=== PATIENT | female | born 1945 | race Hispanic/Latino ===

== ENCOUNTER 2017-03-02 11:13 | Day surgery (SDC) | payer MEDICARE, OTHER ==
[2017-03-02 12:12] LABS: INR 1.11 (0.87-1.13)
[2017-03-02 12:13] LABS: Calcium 8.9 mg/dL (8.4-10.2)
--- NOTE | 2017-03-02 12:15 | Short Stay Summary ---
Short Stay Documentation Date of service: 03/02/17 Narrative H&P: Patient has had multiple permacath. She presents now with a malfunctioning permacath. She is not had dialysis for more than a week. - History Principal diagnosis: malfunctioning permacath Past Medical History: ESRD Past Surgical History: Other (patient has had multiple dialysis catheters) Social history: no significant social history, - Allergies and Medications Current Medications: Allergies No Known Allergies Allergy (Unverified 03/02/17 11:16) Home Medications Medication Instructions Recorded Confirmed Last Taken Type Fludrocortisone [Florinef] 0.1 mg PO DAILY 03/02/17 03/02/17 03/01/17 History 0.1mg Insulin Detemir [Levemir] 35 units SC BID 03/02/17 03/02/17 03/01/17 History 35units Paroxetine HCl [Paxil] 30 mg PO DAILY 03/02/17 03/02/17 03/01/17 History 30mg Quetiapine Fumarate [Quetiapine 100 mg PO DAILY 03/02/17 03/02/17 03/01/17 History Fumarate ER] 100mg Rosuvastatin (Nf) [Crestor] 10 mg PO QHS 03/02/17 03/02/17 03/01/17 History 10mg Warfarin Sodium [Jantoven] 5 mg PO DAILY 03/02/17 03/02/17 02/25/17 History 5mg - Physical exam General appearance: no acute distress HEENT: Atraumatic Lungs: Clear to auscultation Heart: Regular rate Gastrointestinal: normal Extremities: no ischemia Neurological: Other (grossly intact) - Brief post op/procedure progress note Date of procedure: 03/02/17 Pre-op diagnosis: malfunctioning permacath Post-op diagnosis: same Procedure: 1. Balloon angioplasty of the SVC with 8x4 balloon 2. Replace existing permacath with Glidepath 23cm 3. Fluoroscopic guidance Anesthesia: local (sedation) Findings: excellent flow from both ports Surgeon: TAM LOTT Estimated blood loss: minimal Pathology: none Condition: stable - Hospital course Hospital course: benign Short Stay Discharge Plan Activity: advance as tolerated Diet: advance as tolerated Wound: other (as instructed) Follow up with: TAM LOTT MD [Staff Physician] - 7 Days
[2017-03-02] MEDS ORDERED: NACL 0.9% 100 ML IV PRN (13:10)
--- NOTE | 2017-03-02 13:10 | Progress Note ---
Subjective Principal diagnosis: malfunctioning permacath Objective - Vital Signs Vital signs: Vital Signs - 12hr 03/02/17 11:38 Temperature 98 F Pulse Rate 86 Respiratory 18 Rate Blood Pressure 94/49 [Right] O2 Sat by Pulse 100 Oximetry - Lab 03/02/17 11:49 Most recent lab results Calcium 8.9 mg/dL (8.4-10.2) 03/02/17 11:49
[2017-03-02] MEDS ORDERED: HEPARIN/NS 5000 UNIT/500ML(CATH LAB) 500 ML IR ONE (13:46)
[2017-03-02] MEDS ORDERED: NACL 0.9% 500 ML 500 ML ONE (13:46)
[2017-03-02] MEDS ORDERED: XYLOCAINE 2% INFILTRATI ONE (13:46)
[2017-03-02] MEDS ORDERED: ANCEF/STERILE WATER 2 GM/20 ML 2 GM/20 ML SYRINGE IV ONE (13:46)
[2017-03-02] MEDS: VERSED ONE ×2 (13:53→13:55)
[2017-03-02] MEDS: SUBLIMAZE ONE ×2 (13:53→13:55)
[2017-03-02] MEDS: HEPARIN 10,000 UNITS/10 ML ONE ×2 (14:19→14:20)
[2017-03-02] MEDS ORDERED: TRIPLE ANTIBIOTIC TP ONE (14:22)
[2017-03-02] MEDS ORDERED: SODIUM BICARBONATE IV ONE ×4 (14:45→14:50)
--- NOTE | 2017-03-02 14:45 | Operative Report ---
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 Malfunctioning permacath Procedure name(s): 1. Balloon angioplasty of the SVC with 8x4 balloon 2. Replace existing permacath with Glidepath 23cm 3. Fluoroscopic guidance Surgeon: Larry Loera MD Anesthesia: [local with moderate sedation] Moderate sedation time: Start: 13:53 End: 14:18 Total: 25 minutes EBL: minimal Operative indication: Patient is a 72-year-old woman who has multiple failed dialysis catheters. She presents now for replacement of her existing permacath. Findings: There appeared to be narrowing of the superior vena cava as if there were fibrin tunnel. This was treated with balloon angioplasty. Procedure: The patient was placed on the table in supine position. She was given moderate sedation under my direction and supervision by the personnel in the laborer beam house. The area over the right neck was prepped with clear prep solution and draped in the usual sterile fashion. 2% lidocaine plain was used for local anesthesia. A small incision was made at the base of the neck in the permacath that was in place was identified and clamped with a hemostat. The permacath was then divided. The tip of the PermCath was removed intact over a superstiff wire. An 8 [place] sheath was placed over the wire into the central circulation. Contrast injection revealed a patent superior vena cava but there appeared to be some narrowing consistent with a fibrin tunnel. An 8 mm x 4 cm balloon was then used to dilate this area without incident. The remaining portion of the permacath was removed from the skin exit site. The skin exit site was closed with 4-0 chromic. And the skin exit site was fashioned just laterally to the existing one. The catheter was tunneled between the neck incision and this incision. The largest dilator was then placed over the Super Stiff wire into the central circulation. The peel-away sheath was then placed over the guidewire into the central circulation. The guidewire and dilator were removed. The catheter was placed into the central circulation and the peel-away sheath was removed. The catheter was positioned appropriately in the right atrium. There was excellent flow from both ports. The catheter was flushed with heparin saline solution. The catheter then was then filled with units of heparin in each lumen. The new exit tunnel was closed with 4-0 Monocryl. The neck incision was closed with 4-0 Monocryl. Sterile dressings were applied. The patient tolerated the procedure well. Final fluoroscopic images showed the catheter at the right atrium without evidence of twisting or kinking as it coursed out of the internal jugular vein to the shoulder.
[2017-03-02 15:51] VITALS: BP 124/40
--- NOTE | 2017-03-02 17:57 | Event Note ---
Date: 03/02/17 patient was evaluated in the [facility]PP[facility] She is clinically not volume overloaded Labs reviewed. Potassium is normal at 4 She is, however acidotic with a bicarbonate level of 10. she is, however, asymptomatic at this time She will be given 2 Amps of sodium, bicarbonate IV push. okay to discharge patient home after procedure Patient advised to go to her regular scheduled dialysis treatment tomorrow
== END 2017-03-02 16:00 | disposition home or self-care (01) ==
LOC: CATHLABREC 11:13 → EDSEX 11:13 → CATHLABREC 16:00
PROVIDERS: ATTEND Radiology Diagnostic Radiology
DX: T82.49XA Other complication of vascular dialysis catheter, initial encounter (principal); I87.1 Compression of vein; N18.6 End stage renal disease; Y83.2 Surgical operation with anastomosis, bypass or graft as the cause of abnormal reaction of the patient, or of later complication, without mention of misadventure at the time of the procedure
CPT/HCPCS: 36415; 36581; 37248; 77001; 80048; 85610; 99156; 99157; C1725; C1750; C1769; J0690; J1644; J2250; J3010; J7040; A6250; Q9967

== ENCOUNTER 2017-08-14 14:02 | Day surgery (SDC) | payer MEDICARE, OTHER ==
[2017-08-14] MEDS ORDERED: HEPARIN/NS 5000 UNIT/500ML(CATH LAB) 500 ML IR ONE (15:45)
[2017-08-14] MEDS ORDERED: HEPARIN 10,000 UNITS/10 ML ONE (15:45)
[2017-08-14] MEDS ORDERED: VERSED ONE (15:46)
[2017-08-14] MEDS ORDERED: SUBLIMAZE ONE (15:46)
[2017-08-14] MEDS ORDERED: ANCEF/STERILE WATER 2 GM/20 ML 0 GM/0 ML SYRINGE IV ONE (15:46)
[2017-08-14] MEDS ORDERED: NACL 0.9% 500 ML 500 ML ONE (15:47)
[2017-08-14] MEDS: XYLOCAINE 1%/ EPI 1:100,000 INFILTRATI ONE ×2 (16:16→16:38)
--- NOTE | 2017-08-14 17:20 | Short Stay Summary ---
Short Stay Documentation Date of service: 08/14/17 Narrative H&P: Admitted to the Hospital Coordinator for outpatient thrombectomy of nonfunctioning AV graft in the left arm - History H&P: obtained from office - Allergies and Medications Current Medications: Allergies No Known Allergies Allergy (Unverified 03/02/17 11:16) Home Medications Medication Instructions Recorded Confirmed Last Taken Type Detemir (Nf) [Levemir] 35 units SC BID 03/02/17 03/02/17 03/01/17 History 35units Fludrocortisone [Florinef] 0.1 mg PO DAILY 03/02/17 03/02/17 03/01/17 History 0.1mg Paroxetine HCl [Paxil] 30 mg PO DAILY 03/02/17 03/02/17 03/01/17 History 30mg Quetiapine Fumarate [Quetiapine 100 mg PO DAILY 03/02/17 03/02/17 03/01/17 History Fumarate ER] 100mg Rosuvastatin (Nf) [Crestor] 10 mg PO QHS 03/02/17 03/02/17 03/01/17 History 10mg Warfarin Sodium [Jantoven] 5 mg PO DAILY 03/02/17 03/02/17 02/25/17 History 5mg - Brief post op/procedure progress note Date of procedure: 08/14/17 Pre-op diagnosis: thrombosed AV graft left arm, end-stage renal disease Post-op diagnosis: same Procedure: Percutaneous thrombectomy of AV graft with angioplasty of peripheral dialysis circuit Anesthesia: other (moderate sedation beginning sedation time: 1624 end time 1712 total sedation time: 48 minutes) Findings: Thrombosed AV graft with angulation/stenosis at the venous outflow tract corrected by balloon angioplasty, total occlusion of the superior vena cava with terminal flow into the hemiazygous system. No axillary subclavian or nominate vein stenosis Surgeon: PAUL NEAL Estimated blood loss: minimal Pathology: none Condition: stable - Hospital course Hospital course: Good thrill and bruit in graft. We'll pulse. AV graft may be accessed at any time - Disposition Condition at discharge: Stable Disposition: DC-01 TO HOME OR SELFCARE - Discharge Diagnoses (1) Mechanical complication of arteriovenous access or graft Status: Acute Short Stay Discharge Plan Activity: advance as tolerated Diet: renal Wound: keep clean and dry Special Instructions: no heavy lifting Follow up with: TOMEKA FARNSWORTH MD [Primary Care Provider] - 7 Days
--- NOTE | 2017-08-14 17:36 | Operative Report ---
Operative Report Operative Report: Date of procedure: 08/14/2017 Pre-operative diagnosis: Thrombosed AV graft, end-stage renal disease Post-operative diagnosis: Same Procedure name(s): Percutaneous thrombectomy with angioplasty peripheral dialysis circuit left arm Surgeon: Goldy Caceres MD [employer] Welding Machine Operator: None Anesthesia: Moderate sedation: Sedation time 48 minutes EBL: Minimal Specimen(s): None Complications: None Findings: Outflow stenosis or kinking at the graft to vein anastomosis successfully treated with an angioplasty after thrombectomy. Superior vena cava occluded with terminal outflow into the Azygous venous system system Procedure: Patient in the supine position with the left arm extended the entire extremity is prepped and draped using standard sterile technique. Findings was used to cannulate the AV graft using micropuncture technique and real-time imaging with a microwire was advanced into the central circulation and a micro- sheath was placed. A J-wire was advanced into the central circulation and a 7 [place] introducer was placed. Patient was given IV heparin and guide catheter was advanced into the axillary vein. Blood was withdrawn for potassium. If the patient heparin and standard sedation conscious sedation protocol of Versed and fentanyl. Central imaging was performed in the superior vena cava was occluded. No bases of the SVC via the azygous venous system and confirmed that the [place] veins were patent but the AV graft was occluded. Trerotola was then inserted towards the venous end and used to liquefy all of the thrombus in the distal graft. Size improvement bypass the outflow stenosis I then ballooned it with an 8 x 4 balloon. Flow was good into the central vein without any residual stenosis. Cross catheter technique was then used with me sheath inserted towards the arterial limb. Brachial was then advanced to the anastomosis in the open position and then withdrawn before activating. Maintaining proper the graft was stripped of thrombus. The graft developed an excellent thrill and bruit. Contrast was injected in retrograde fashion sewing the graft to be completely clear of thrombus with a wide open arterial anastomosis. Outflow was excellent iliac study vein. It was then terminated by removing each sheath over a pursestring chromic suture. She was excellent. Good thrill and bruit in the graft. Patient returned recovery in stable condition.
[2017-08-14 17:44] VITALS: BP 147/43
== END 2017-08-14 14:03 | disposition home or self-care (01) ==
LOC: CATHLABREC 14:02
PROVIDERS: ATTEND Radiology Diagnostic Radiology
DX: T82.868A Thrombosis due to vascular prosthetic devices, implants and grafts, initial encounter (principal); Y83.2 Surgical operation with anastomosis, bypass or graft as the cause of abnormal reaction of the patient, or of later complication, without mention of misadventure at the time of the procedure; N18.6 End stage renal disease
CPT/HCPCS: 36415; 36905; 84132; C1725; C1757; C1894; J0690; J1644; J2250; J3010; J7040; Q9967